=== PATIENT | female | born 1970 | race Caucasian/White ===

== ENCOUNTER 2018-08-29 12:41 | Emergency (ER) | payer OTHER ==
[~2018-08-29] VITALS: Ht 180.3 cm; Wt 130.2 kg
[~2018-08-29 12:41] MED LIST: ACTEMRA162 MG/0.9 SQ; AMITRIPTYLINE H75 M1 PO; HYDROCODONE-AP1 EAC6 PO; METHOTREXATE MC; NEXIUM40 MG PO; PHENERGAN 25 MG25 M1 PO; ULTRAM 50MG TAB50 MG PO; ZANTAC 150MG T150 M1 PO
[2018-08-29] MEDS ORDERED: RITUXAN100 MG/10 IV (12:51)
[2018-08-29] MEDS ORDERED: EFFEXOR XR75 MG PO (12:52)
[2018-08-29 13:21] LABS: ABSOLUTE BASOPHILS 0.1 thou/uL (0.0-0.2); ABSOLUTE EOSINOPHILS 0.2 thou/uL (0.0-0.7); ABSOLUTE LYMPHOCYTES 1.7 thou/uL (0.8-5.3); ABSOLUTE MONOCYTES 0.4 thou/uL (0.0-1.2); ABSOLUTE NEUTROPHILS 6.8 thou/uL (1.6-8.1); BASOPHILS 0.6 %; EOSINOPHILS 2.6 %; HEMATOCRIT 39.9 % (37.0-47.0); HEMOGLOBIN 12.6 gm/dL (12.0-15.0); LYMPHOCYTES 18.6 %; MCH 26.2 pg (26.0-34.0); MCHC 31.7 g/dL (28.0-37.0); MCV 82.7 fL (80.0-100.0); MONOCYTES 4.5 %; MPV 8.3 fl. (7.2-11.1); NUCLEATED RBCS 0 /100WBC; PLATELET COUNT* 308 thou/uL (150-400); POLYS 73.7 %; RBC 4.82 mil/uL (4.20-5.00); RDW-CV 18.1 % (10.5-14.5); WBC 9.2 thou/uL (4.0-11.0)
[2018-08-29 13:32] LABS: ANION GAP 10 mmol/L (7-16); BUN 13 mg/dL (7-18); CALCIUM 8.8 mg/dL (8.5-10.1); CHLORIDE 106 mmol/L (98-107); CO2 27 mmol/L (21-32); CREATININE 0.9 mg/dL (0.6-1.3); GLUCOSE 103 mg/dL (70-99); POTASSIUM 3.8 mmol/L (3.5-5.1); SODIUM 143 mmol/L (136-145)
[2018-08-29 13:43] LABS: ALBUMIN 3.6 g/dL (3.4-5.0); ALKALINE PHOSPHATASE 127 U/L (46-116); LIPASE 135 U/L (73-393); MAGNESIUM 2.1 mg/dL (1.8-2.4); NT-PRO BRAIN NAT PEPTIDE 33 pg/mL (<300); SGOT 14 U/L (15-37); SGPT 21 U/L (30-65); TOTAL BILIRUBIN 0.2 mg/dL (<0.1-1.0); TOTAL PROTEIN 7.3 g/dL (6.4-8.2); TROPONIN-I LEVEL <0.06 ng/mL (<0.06)
[2018-08-29] MEDS ORDERED: ATIVAN1 MG PO (15:37)
--- NOTE | 2018-08-29 15:44 | EKG ---
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1970 Requested By: Ras Smiley Order Number: [id number] MD: Tip Bhatti Measurements Intervals [place] Rate: 96 P: 34 MS: 151 QRS: -18 QRSD: 99 T: 26 QT: 353 QTc: 447 Interpretive Statements Sinus rhythm Borderline left axis deviation Low voltage, precordial leads Baseline wander in lead(s) III No previous ECG available for comparison Electronically Signed On 08-29-2018 15:44:06 CDT by Tip Bhatti [email or web address] <ELECTRONICALLY SIGNED> By: Tip Bhatti MD, [facility] 08/29/18 1544 1244 1244 Tip Bhatti MD, FACC /EPI
[2018-08-29 15:46] VITALS: BP 120/74
--- NOTE | 2018-08-30 10:42 | EKG ---
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
== END 2018-08-29 15:47 | disposition home or self-care (01) ==
LOC: M.ERS 12:41
PROVIDERS: Emergency Medicine Emergency Medical Services
DX: R07.89 Other chest pain (principal); M06.9 Rheumatoid arthritis, unspecified; M79.7 Fibromyalgia; Z98.84 Bariatric surgery status; Z98.890 Other specified postprocedural states; Z88.1 Allergy status to other antibiotic agents

== ENCOUNTER 2020-08-15 14:53 | Emergency (ER) | payer OTHER ==
[~2020-08-15] VITALS: Ht 180.3 cm; Wt 136.1 kg
[~2020-08-15 14:53] MED LIST changes: +ATIVAN1 MG PO; +EFFEXOR XR75 MG PO; +RITUXAN100 MG/10 IV
[2020-08-15] MEDS ORDERED: IMITREX 25 MG T25 M1 PO (15:15)
[2020-08-15] MEDS ORDERED: BUSPIRONE HCL7.5 MG PO (15:15)
[2020-08-15 15:31] LABS: ABSOLUTE LYMPHOCYTES 0.7 thou/uL (0.8-5.3); ABSOLUTE MONOCYTES 0.4 thou/uL (0.0-1.2); ABSOLUTE NEUTROPHILS 5.2 thou/uL (1.6-8.1); BASOPHILS 0.4 %; EOSINOPHILS 0.2 %; HEMATOCRIT 37.8 % (37.0-47.0); HEMOGLOBIN 12.1 gm/dL (12.0-15.0); LYMPHOCYTES 11.4 %; MCH 25.3 pg (26.0-34.0); MCHC 31.9 g/dL (28.0-37.0); MCV 79.4 fL (80.0-100.0); MONOCYTES 5.6 %; MPV 7.7 fl. (7.2-11.1); NUCLEATED RBCS 0 /100WBC; PLATELET COUNT* 243 thou/uL (150-400); POLYS 82.4 %; RBC 4.77 mil/uL (4.20-5.00); RDW-CV 17.8 % (10.5-14.5); WBC 6.3 thou/uL (4.0-11.0)
[2020-08-15 15:42] LABS: CALCIUM 8.1 mg/dL (8.5-10.1); CREATININE 0.8 mg/dL (0.6-1.3); POTASSIUM 3.6 mmol/L (3.5-5.1)
[2020-08-15 15:46] LABS: ALBUMIN 3.4 g/dL (3.4-5.0); TOTAL BILIRUBIN 0.4 mg/dL (<0.1-1.0); TOTAL PROTEIN 7.3 g/dL (6.4-8.2)
[2020-08-15 16:32] LABS: URINE BILIRUBIN NEGATIVE (Negative); URINE BLOOD NEGATIVE (Negative); URINE CLARITY CLEAR; URINE COLOR YELLOW; URINE GLUCOSE-RANDOM NEGATIVE (Negative); URINE KETONES NEGATIVE (Negative); URINE LEUKOCYTES-REFLEX NEGATIVE (Negative); URINE NITRITE-REFLEX NEGATIVE (Negative); URINE PROTEIN NEGATIVE (Negative)
[2020-08-15 16:40] LABS: INFLUENZA A ANTIGEN Negative (Negative); INFLUENZA B ANTIGEN Negative (Negative)
[2020-08-15] MEDS ORDERED: LEVOFLOXACIN500 MG PO (16:48)
[2020-08-15] MEDS ORDERED: APAP W/CODEINE1 TA2 PO ×2 (16:48→16:52)
[2020-08-15] MEDS ORDERED: PREDNISONE 20 M20 MG PO (16:48)
[2020-08-15] MEDS ORDERED: PROAIR HFA8.5 GM INH (16:48)
[2020-08-15] MEDS ORDERED: ONDANSETRON ODT4 MG PO ×2 (16:48→16:50)
[2020-08-15 16:59] VITALS: BP 144/65
--- NOTE | 2020-08-16 10:31 | EKG ---
[place] [address] ELECTROCARDIOGRAM REPORT Name: AKBAR AGUILAR 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1970 Requested By: Elia Meier Order Number: [id number] MD: Tip Bhatti Measurements Intervals [place] Rate: 106 P: 4 TN: 155 QRS: -15 QRSD: 93 T: 6 QT: 341 QTc: 453 Interpretive Statements Sinus tachycardia Borderline left axis deviation Low voltage, precordial leads Compared to ECG 08/29/2018 15:41:32 Low QRS voltage now present Sinus rhythm no longer present Electronically Signed On 08-16-2020 10:31:29 CDT by Tip Bhatti [email or web address] <ELECTRONICALLY SIGNED> By: Tip Bhatti MD, [facility] 08/16/20 1031 1521 1521 Tip Bhatti MD, [facility] /EPI
== END 2020-08-15 17:01 | disposition home or self-care (01) ==
LOC: M.ERS 14:53
PROVIDERS: Physician Assistant
DX: J18.9 Pneumonia, unspecified organism (principal); Z20.822 Contact with and (suspected) exposure to COVID-19; M79.7 Fibromyalgia; M06.9 Rheumatoid arthritis, unspecified; Z98.890 Other specified postprocedural states; Z90.49 Acquired absence of other specified parts of digestive tract; Z79.899 Other long term (current) drug therapy; Z88.1 Allergy status to other antibiotic agents